=== PATIENT | female | born 1960 | race African-American/Black ===

== ENCOUNTER 2017-06-30 21:00 | Emergency (ER) | END 2017-07-01 00:53 | disposition home or self-care (01) ==

== ENCOUNTER 2017-10-14 15:02 | Emergency (ER) | END 2017-10-14 18:20 | disposition home or self-care (01) ==

== ENCOUNTER 2017-12-23 08:33 | Day surgery (SDC) | END 2017-12-23 15:04 | disposition home or self-care (01) ==